=== PATIENT | female | born 1955 | race Caucasian/White ===

== ENCOUNTER 2018-08-31 20:28 | Inpatient (IN) ==
[2018-08-31] MEDS ORDERED: ZOFRAN IV ONE (21:16)
[2018-08-31] MEDS ORDERED: NS 1,000 ML IV ONE (21:17)
[2018-08-31 21:27] LABS: URINE SOURCE CATH
[2018-08-31 21:37] LABS: BASO# 0.01 X1000 (0.0-0.2); BASO% 0.2 % (0.0-0.8); EOS# 0.04 X1000 (0.0-0.7); EOS% 0.6 % (0.0-10.0); HEMATOCRIT 36.6 % (37.0-47.0); HEMOGLOBIN 11.4 g/dL (12.0-16.0); IMM GRAN# 0.03 X1000 (0.0-0.04); IMM GRAN% 0.5 % (0.0-0.5); LYMPH# 0.94 X1000 (1.2-3.4); LYMPH% 14.8 % (20.5-51.1); MCH 28.9 PG (27-31); MCHC 31.1 g/dL (33-37); MCV 92.9 FL (81-99); MONO# 0.97 X1000 (0.11-0.59); MONO% 15.2 % (1.7-9.3); MPV 11.4 FL (7.4-10.4); NEUT# 4.38 X1000 (1.4-6.5); NEUT% 68.7 % (42.2-75.2); PLT 122 X1000 (130-400); RBC 3.94 XMIL (4.2-5.4); RDW 15.5 % (11.5-14.5); WBC 6.37 X1000 (4.8-10.8)
--- NOTE | 2018-08-31 21:39 | Diag Imaging Result Doc PS360 ---
CHEST-PORTABLE - 08/31/2018 INDICATION: altered mental status COMPARISON: 08/07/2018 FINDINGS: The lungs are normally expanded and clear. Heart size and mediastinal contours are normal. No pneumothorax or pleural effusion. IMPRESSION: Negative exam. Electronically signed by David Wick 08/31/2018 9:37 PM
[2018-08-31 21:41] LABS: BILIRUBIN URINE NEGATIVE (NEGATIVE); BLOOD URINE NEGATIVE (NEGATIVE); COLOR YELLOW; GLUCOSE URINE NEGATIVE (NEGATIVE); KETONE URINE TRACE mg/dL (NEGATIVE); LEUKOCYTES URINE SMALL (NEGATIVE); NITRITE URINE NEGATIVE (NEGATIVE); PROTEIN URINE 30 mg/dL (NEGATIVE); SP GRAVITY URINE 1.011; TURBIDITY URINE CLEAR (CLEAR); UR EPITHELIAL CELLS <10 /HPF (<10); URINE BACTERIA 1+ /HPF; URINE RBC <10 /HPF (<10); UROBILINOGEN URINE NORMAL (NORMAL)
--- NOTE | 2018-08-31 21:44 | Diag Imaging Result Doc PS360 ---
CT HEAD W/O CONTRAST - 08/31/2018 INDICATION: altered mental status COMPARISON: 11/16/2016 FINDINGS: Stable mild atrophy and periventricular white matter chronic microvascular disease. No intracranial mass or hemorrhage. The skull is intact. The sinuses are clear. IMPRESSION: No acute disease or change from prior. This exam was performed using automated exposure control, adjustment of mA or kV according to patient size, and/or use of iterative reconstruction technique Electronically signed by David Wick 08/31/2018 9:42 PM
[2018-08-31 21:50] LABS: UR AMPHETAMINES QUAL NONE DETECTED (NONE DETECT); UR BARBITUATES QUAL NONE DETECTED (NONE DETECT); UR BENZODIAZEPIN QUAL NONE DETECTED (NONE DETECT); UR CANNABINOIDS QUAL NONE DETECTED (NONE DETECT); UR COCAINE QUAL NONE DETECTED (NONE DETECT); UR METHADONE QUAL NONE DETECTED (NONE DETECT); UR OPIATES QUAL NONE DETECTED (NONE DETECT); UR OXYCODONE QUAL NONE DETECTED (NONE DETECT); UR PCP QUAL NONE DETECTED (NONE DETECT)
[2018-08-31 21:57] LABS: AGAP 14; ALB/GLOB RATIO 1.1; ALBUMIN 3.8 g/dL (3.5-5.0); ALKALINE PHOSPHATASE 59 U/L (32-104); BUN 16 mg/dL (8-22); CALCIUM 9.8 mg/dL (8.8-10.2); CHLORIDE 100 mmol/L (98-107); CK PROFILE 53 U/L (24-173); COSMO 281; CREATININE 1.3 mg/dL (0.5-0.9); ESTIMATED GFR 42; GLUCOSE 102 mg/dL (70-104); GOT 12 U/L (10-30); GPT < 5 U/L (10-36); SODIUM 140 mmol/L (136-145); TCO2 26 mmol/L (25-35); TOTAL BILIRUBIN 0.29 mg/dL (0.20-1.00); TOTAL PROTEIN 7.3 g/dL (6.3-8.3)
[2018-08-31 22:15] LABS: INR 0.91; PROTIME 12.9 Seconds (11.0-16.0)
[2018-08-31 22:16] LABS: PTT 32.4 Seconds (22.3-41.8)
[2018-08-31] MEDS ORDERED: ROCEPHIN 1 GM in NS 50 ML IV ONE (23:24)
--- NOTE | 2018-08-31 23:24 | PROVIDER DOCUMENTATION ---
This chart was entered by Rani Ritter Scribe, acting as scribe for Diego Trevino MD. HPI-General Adult - General Chief Complaint: General Adult Stated Complaint: UTI Time Seen by Provider: 08/31/18 20:39 Source: patient Unable to obtain history due to:: altered (mild confusion) Allergies/Adverse Reactions: Patient Allergies Allergy/AdvReac Type Severity Reaction Status Date / Time No Known Allergies Allergy Verified 07/11/17 23:47 Home Medications: Home Medication List Medication Instructions Recorded Confirmed Last Taken Type Linagliptin [Tradjenta] 5 mg PO QHS 04/28/15 08/07/18 2 Days Ago History ~08/05/18 Metformin HCl 500 mg PO BID 04/28/15 08/07/18 2 Days Ago History ~08/05/18 Dicyclomine [Bentyl] 20 mg PO TID AC 07/12/17 08/07/18 2 Days Ago History ~08/05/18 Donepezil [Aricept] 5 mg PO QHS 07/12/17 08/07/18 2 Days Ago History ~08/05/18 Pantoprazole [Protonix] 40 mg PO DAILY@0700 07/12/17 08/07/18 2 Days Ago History ~08/05/18 Pramipexole [Mirapex] 0.5 mg PO DAILY 07/12/17 08/07/18 2 Days Ago History ~08/05/18 Bupropion HCl [Bupropion HCl Sr] 200 mg PO BID 08/07/18 08/07/18 1 Day Ago History ~08/06/18 Carbidopa/Levodopa [Carbidopa-Levo 1 each PO BID 08/07/18 08/07/18 2 Days Ago History 25-100 Tab] ~08/05/18 Divalproex Sodium 500 mg PO DAILY 08/07/18 08/07/18 2 Days Ago History ~08/05/18 Ergocalciferol (Vitamin D2) 50,000 unit PO DIRECTED 08/07/18 08/07/18 2 Days Ago History [Vitamin D] ~08/05/18 Hydrocodone/Acetaminophen 1 each PO TID 08/07/18 08/07/18 2 Days Ago History [Hydrocodone-Acetamin 10-325 mg] ~08/05/18 Simvastatin 20 mg PO QHS 08/07/18 08/07/18 2 Days Ago History ~08/05/18 CephALEXIN [Keflex] 500 mg PO TID #20 cap 08/09/18 Unknown Rx Ciprofloxacin [Cipro] 500 mg PO BID #14 tab 08/09/18 Unknown Rx - History of Present Illness -Gen Adult Nature of Presenting Problems: pt is a 62 yr old female presenting with complaint of AMS, confusion, nausea and vomiting today, pt lethargic today. no fever, no other complaint. pt does have hx of hx of recurrent UTIs Location of Pain/Injury: reports: none Pain Radiation: reports: no radiation Quality of Pain: reports: none Severity: reports: moderate Onset/Duration: reports: this afternoon Timing: reports: still present, changing over time, getting worse Context/Activities at Onset: reports: light activity Modifying Factors: improves with: nothing Associated Symptoms: reports: fatigue, genitourinary problems, malaise, weakness , other (confusion). denies: fever/chills Similar Symptoms Previously?: Yes Recently seen or treated by another doctor?: Yes Review of Systems - Adult - REVIEW OF SYSTEMS - ADULT Constitutional: denies: chills, fever Eyes: reports: no symptoms reported Ears, Nose, Mouth & Throat: reports: no symptoms reported Cardiovascular: denies: chest pain, palpitations, syncope Respiratory: denies: cough, shortness of breath Gastrointestinal: reports: nausea, vomiting. denies: abdominal pain Genitourinary: reports: frequent UTI's. denies: dysuria, frequency, flank pain Musculoskeletal: reports: no symptoms reported Integumentary: reports: no symptoms reported Neurological: reports: other (confusion). denies: dizziness/vertigo, headache/ migraines Psychiatric: reports: no symptoms reported Endocrine: reports: no symptoms reported Hematologic/Lymphatic: reports: no symptoms reported Allergic/Immunologic: reports: no symptoms reported All Other Systems: Reviewed and Negative Past History - Adult - PAST MEDICAL HISTORY-ADULT Review of Records: reports: Old Records Reviewed, Nursing Assessment Review, Medications Reviewed, Social history reviewed & non-contributory. Major Childhood Illnesses: reports: denies history Cardiovascular: reports: HTN, hyperlipidemia Respiratory: reports: denies history Gastrointestinal: reports: GERD, IBS Obstetrical/Gynecological: reports: denies history Genitourinary: reports: other (previous kidney failure in 2000) Musculoskeletal: reports: denies history Neurological: reports: Parkinson's Psychiatric: reports: bipolar Endocrine/Immune: reports: denies history, Diabetes Other Conditions: reports: denies history - PRIOR SURGERIES/PROCEDURES Surgical/Procedure History: reports: recent surgery (Shoulder Surgery last week 04/2015), hysterectomy, BTL, orthopedic (extremity) (L Shoulder Sx, 2014), back/ neck (bulging disc, L4-5) - IMMUNIZATION STATUS Childhood Immunizations: See Nurse Assessment Flu Vaccine: See Nurse Assessment - FAMILY HISTORY Family History: reviewed, not pertinent - SOCIAL HISTORY Smoking: denies Substance Use: denies Living Situation: family Physical Exam-General - PHYSICAL EXAM-ADULT Initial Vital Signs Reviewed: Yes - CONSTITUTIONAL General Appearance: alert, other (frail, confused) - EYES Eyes: PERRL/EOMI - HEAD, EARS, NOSE, MOUTH & THROAT HENMT: normocephalic/atraumatic, moist mucous membranes - NECK Neck: non-tender, full range of motion, supple, normal inspection - RESPIRATORY Respiratory: chest non-tender, lungs clear, normal breath sounds - CARDIOVASCULAR Cardiovascular: normal peripheral pulses, regular rate, rhythm, no edema - GASTROINTESTINAL (ABDOMEN) Abdominal Exam: normal bowel sounds, non tender, soft - LYMPHATIC Lymphatic: no adenopathy - MUSCULOSKELETAL Back Exam: normal inspection, no CVA tenderness, no vertebral tenderness Extremity: normal range of motion, non-tender, normal inspection - SKIN Integumentary: normal color, normal turgor, warm/dry - NEUROLOGIC Neurologic: grossly normal, no motor/sensory deficits - PSYCHIATRIC Psych/Mental Status: other (oriented tp person/place) Progress - PLAN OF CARE/RESULTS Progress/Plan/Lab Results: Vital Signs - 8 hr 08/31/18 20:32 Temperature 98.9 F Pulse Rate 86 Respiratory Rate 20 Blood Pressure 145/61 O2 Sat by Pulse Oximetry 100 Laboratory Results - last 24 hr 08/31/18 08/31/18 08/31/18 20:41 21:08 21:08 WBC 6.37 RBC 3.94 L Hgb 11.4 L Hct 36.6 L MCV 92.9 MCH 28.9 MCHC 31.1 L RDW Std Deviation 15.5 H Plt Count 122 L MPV 11.4 H Immature Gran % (Auto) 0.5 Neut % (Auto) 68.7 Lymph % (Auto) 14.8 L Hick[place] % (Auto) 15.2 H Eos % (Auto) 0.6 Baso % (Auto) 0.2 Immature Gran # (Auto) 0.03 Neut # (Auto) 4.38 Lymph # (Auto) 0.94 L [place] # (Auto) 0.97 H Eos # (Auto) 0.04 Baso # (Auto) 0.01 POC Glucose 93 D Plasma Lactate 2.2 Urine Source Urine Color Urine Turbidity Urine pH Ur Specific [place] Urine Protein Ur Glucose (Stick) Ur Ketones (Stick) Urine Blood Urine Nitrite Urine Bilirubin Urobilinogen Dipstick Urine Leukocytes Urine WBC (Auto) Urine RBC (Auto) U Epithel Cells (Auto) Urine Bacteria (Auto) 08/31/18 21:10 WBC RBC Hgb Hct MCV MCH MCHC RDW Std Deviation Plt Count MPV Immature Gran % (Auto) Neut % (Auto) Lymph % (Auto) [place] % (Auto) Eos % (Auto) Baso % (Auto) Immature Gran # (Auto) Neut # (Auto) Lymph # (Auto) [place] # (Auto) Eos # (Auto) Baso # (Auto) POC Glucose Plasma Lactate Urine Source CATH Urine Color YELLOW Urine Turbidity CLEAR Urine pH 7.0 Ur Specific [place] 1.011 Urine Protein 30 A Ur Glucose (Stick) NEGATIVE Ur Ketones (Stick) TRACE A Urine Blood NEGATIVE Urine Nitrite NEGATIVE Urine Bilirubin NEGATIVE Urobilinogen Dipstick NORMAL Urine Leukocytes SMALL A Urine WBC (Auto) 10-20 A Urine RBC (Auto) <10 U Epithel Cells (Auto) <10 Urine Bacteria (Auto) 1+ Orders Category Date Time Status CHEST-PORTABLE [RAD] Stat Exams 08/31/18 21:[address] HEAD W/O CONTRAST [CT] Stat Exams 08/31/18 21:16 Completed AMMONIA [CHEM] Stat Lab 08/31/18 21:08 Received CBC WITH ELECTRONIC DIFF [HEME] Stat Lab 08/31/18 21:08 Completed CK PROFILE [SP CHEM] Stat Lab 08/31/18 21:08 Received COMPREHENSIVE METABOLIC PANEL [CHEM] Stat Lab 08/31/18 21:08 Received LACTATE, PLASMA [CHEM] Stat Lab 08/31/18 21:08 Completed PRO B-NATRIURETIC PEPTIDE Stat Lab 08/31/18 21:08 Received PROTIME WITH INR [COAG] Stat Lab 08/31/18 21:33 Ordered PTT [COAG] Stat Lab 08/31/18 21:33 Ordered URINALYSIS W/POSS RFLX CULT [URINALYSIS] Stat Lab 08/31/18 21:10 Completed URINE CULTURE [RM] Routine Lab 08/31/18 21:42 Received URINE DRUG SCREEN Stat Lab 08/31/18 21:10 Received 0.9% Sodium Chloride Inj [Ns] 1,000 ml Med 08/31/18 21:17 Active IV 999 mls/hr Ondansetron [Zofran] Med 08/31/18 21:16 Discontinued 4 mg IV NOW ONE EKG [EKG] Stat Ther 08/31/18 21:14 Ordered Result Diagrams: 08/31/18 21:08 08/31/18 21:08 - XRAY 1 XRAY Study: Chest Impression: Normal ( Signed CHEST-PORTABLE - 08/31/2018 INDICATION: altered mental status COMPARISON: 08/07/2018 FINDINGS: The lungs are normally expanded and clear. Heart size and mediastinal contours are normal. No pneumothorax or pleural effusion. IMPRESSION: Negative exam. Electronically signed by David Wick 08/31/2018 9:37 PM [id number]/31/[id number] Interpreting Physician: David Wick MD Dictated Date/Time: 08/31/182132 cc: Diego Trevino MD; Saeed Kearns MD) Comparison with other Films: no changes (08/07/18) - CT/MRI 1 CT Study: Head Impression: Abnormal (Signed CT HEAD W/O CONTRAST - 08/31/2018 INDICATION: altered mental status COMPARISON: 11/16/2016 FINDINGS: Stable mild atrophy and periventricular white matter chronic microvascular disease. No intracranial mass or hemorrhage. The skull is intact. The sinuses are clear. IMPRESSION: No acute disease or change from prior. This exam was performed using automated exposure control, adjustment of mA or kV according to patient size, and/or use of iterative reconstruction technique Electronically signed by David Wick 08/31/2018 9:42 PM [id number]/31/[id number] Interpreting Physician: David Wick MD Dictated Date/Time: 08/31/182138 cc: Diego Trevino MD; Saeed Kearns MD) Comparison with other Films: no changes (11/16/16) - CONSULTS/PCP/HOSPITALIST Notification #1 *Consult/PCP/Hospitalist*: Dr. El Time Discussed: 23:23 Consult Disposition: Admit Departure - Departure Date of Disposition Decision: 08/31/18 Time of Disposition Decision: 23:24 DIAGNOSIS: Altered mental status Qualifiers: Altered mental status type: disorientation Qualified Code(s): R41.0 - Disorientation, unspecified UTI (urinary tract infection) Qualifiers: Urinary tract infection type: site unspecified Hematuria presence: without hematuria Qualified Code(s): N39.0 - Urinary tract infection, site not specified Disposition: HOME 01 Certified Medical Emergency: Emergent Condition: Fair - Critical Care Note This patient required my direct & personal management of CC.: No Attestation - Physician/ MATY Attestation The physician spent face to face time with patient:: Yes Advanced Practice Provider documentation review:: Supervising physician onsite and consulted in the evaluation and care of this patient. The physician did have a face to face encounter with the patient. This chart was documented by the indicated scribe, (Rani Ritter Scribe) and accurately reflects the services I performed and decisions made by me, Diego Trevino MD, as attested by the provider's signature.
--- NOTE | 2018-09-01 07:12 | HISTORY AND PHYSICAL ---
PRIMARY CARE PHYSICIAN: Unknown. CHIEF COMPLAINT: Mental status changes, confusion. HISTORY OF PRESENTING ILLNESS: A 62-year-old female with a history of Parkinson ', dementia, hypertension, diabetes mellitus type 2, was brought to the emergency department due to patient being more confused than her baseline. As per family members, she was altered and was not really responsive to questions the family was asking. Was brought to the emergency department. She was still somewhat confused and due to her presenting symptoms it was thought that we will place her for observation for further evaluation and management. At time my examination, she had denied any headache, fever, chills, chest pain, shortness of breath or any weight changes. States that she feels okay. PAST MEDICAL HISTORY: Parkinson's dementia, hypertension, diabetes mellitus type 2, bipolar disorder. PAST SURGICAL HISTORY: None. ALLERGIES: No known drug allergies. CURRENT MEDICATIONS: As listed in the medication reconciliation sheet. SOCIAL HISTORY: No history of smoking, alcohol or illicit drug use. FAMILY HISTORY: No history of coronary disease. REVIEW OF SYSTEMS: Fourteen-point review of systems as listed in HPI. Other systems negative. PHYSICAL EXAMINATION: GENERAL: Cooperative, friendly female. She is resting comfortably. VITAL SIGNS: Temperature 98.9 degrees, pulse 86, respiration 20, blood pressure 145/61. HEENT: Atraumatic, normocephalic. Extraocular movements intact. PERRLA. NECK: Supple. CHEST: Clear to auscultation. ABDOMEN: Soft, positive bowel sounds. EXTREMITIES: No edema. NEUROLOGIC: She is awake, alert, oriented x2. GENITOURINARY: No bladder distention. SKIN: Warm. LABORATORIES AND STUDIES: WBC 6.37, hemoglobin 11.4, hematocrit 36.6, platelets 122. Sodium 140, potassium 5.0, chloride 100, CO2 BUN 16, creatinine is 1.3, glucose is 102. UA shows some small leukocytes. Head CT negative. Chest x-ray negative. ASSESSMENT: A 62-year-old female with a history of Parkinson's dementia, hypertension, diabetes mellitus type 2. Had presented to the emergency department with a 1-day history of having mental status changes. As per family, they state that this is worse than baseline. Due to her presenting symptoms, we will place patient for observation and further evaluation and management. 1. Altered mental status worse than baseline. 2. Parkinson's. 3. Dementia. 4. Diabetes mellitus type 2. 5. Hypertension. PLAN: 1. We will admit patient to medical floor with telemetry. 2. Continue with neuro checks. 3. Restart her home medications. 4. Continue gentle hydration. 5. Monitor blood glucose and put patient on sliding scale insulin regimen. 6. We will monitor blood pressure, resume antihypertensive agent. 7. Put Patient on DVT prophylaxis with SCDs. 8. We will continue to follow, and reassess and make further recommendations based on patient's clinical course. cc: MD Evert Hood MD MTDD
[2018-09-01] MEDS: HUMULIN R SUBQ SCH ×4 (07:37→20:01)
[2018-09-01] MEDS: NS 1,000 ML IV SCH ×2 (07:42→18:45)
[2018-09-01] MEDS: PRILOSEC PO SCH (07:43)
--- NOTE | 2018-09-01 08:14 | EKG Report ---
Test Performed on : 08/31/2018 9:54:11 PM Test Reason : altered mental status Blood Pressure : / mmHG Vent. Rate : 080 BPM Atrial Rate : 080 BPM P-R Int : 164 ms QRS Dur : 090 ms QT Int : 358 ms P-R-T Axes : 045 -07 059 degrees QTc Int : 412 ms Normal sinus rhythm. Nonspecific ST and T wave abnormality Abnormal ECG When compared with ECG of 20-FEB-2013 17:07, No significant change was found Unconfirmed Result
[2018-09-01] MEDS: SINEMET 25/100 PO SCH ×2 (08:36→20:00)
[2018-09-01] MEDS ORDERED: TYLENOL PO PRN (16:47)
[2018-09-01] MEDS: TYLENOL PO PRN (17:35)
[2018-09-01] MEDS ORDERED: VITAMIN D PO SCH (18:45)
[2018-09-01] MEDS: ZOSYN 3.375 GM in NS 50 ML IV SCH (18:54)
[2018-09-01] MEDS: ARICEPT PO SCH (20:00)
[2018-09-01] MEDS: ZOCOR PO SCH (20:00)
[2018-09-01] MEDS: TRADJENTA PO SCH (20:00)
[2018-09-02] MEDS: ZOSYN 3.375 GM in NS 50 ML IV SCH ×6 (01:29→21:27)
[2018-09-02 06:00] LABS: BASO# 0.01 X1000 (0.0-0.2); BASO% 0.2 % (0.0-0.8); EOS# 0.03 X1000 (0.0-0.7); EOS% 0.6 % (0.0-10.0); HEMATOCRIT 32.3 % (37.0-47.0); LYMPH# 1.08 X1000 (1.2-3.4); LYMPH% 23.1 % (20.5-51.1); MCH 28.5 PG (27-31); MONO# 0.71 X1000 (0.11-0.59); MONO% 15.2 % (1.7-9.3); MPV 10.8 FL (7.4-10.4); NEUT# 2.85 X1000 (1.4-6.5); NEUT% 60.9 % (42.2-75.2); PLT 113 X1000 (130-400); RBC 3.51 XMIL (4.2-5.4); RDW 15.4 % (11.5-14.5); WBC 4.68 X1000 (4.8-10.8)
[2018-09-02] MEDS: PRILOSEC PO SCH (06:02)
[2018-09-02] MEDS: NS 1,000 ML IV SCH (06:03)
[2018-09-02] MEDS: HUMULIN R SUBQ SCH ×4 (06:15→21:25)
[2018-09-02 06:16] LABS: CALCIUM 8.7 mg/dL (8.8-10.2); CREATININE 1.4 mg/dL (0.5-0.9); POTASSIUM 4.9 mmol/L (3.5-5.1)
[2018-09-02] MEDS: GLUCOPHAGE PO SCH ×2 (08:17→17:21)
[2018-09-02] MEDS: SINEMET 25/100 PO SCH ×2 (08:17→21:25)
[2018-09-02] MEDS: TYLENOL PO PRN (16:51)
--- NOTE | 2018-09-02 20:09 | PROGRESS NOTE ---
DATE: 09/02/2018 SUBJECTIVE: A 62-year-old white female admitted to the hospital with altered mental status, dehydration, UTI. PAST MEDICAL HISTORY: Reviewed. PAST SURGICAL HISTORY: Reviewed. MEDICINES: Reviewed. ALLERGIES: Not known. OBJECTIVE: Vital Signs: Temperature is 98. Vitals are stable. 96% on room air. HEENT: Within normal limits. Neck: Supple. Chest: Clear. Heart: Sounds are regular. Abdomen: Belly is soft, nontender. Good bowel sounds. No signs of peritonitis. Neurologic: No deficits noted. INVESTIGATIONS: CBC: White cell count 4.6, hematocrit 32, platelets 113,000. SMA-7: Creatinine 1.4. Urinalysis positive for UTI due to E coli sensitive to Levaquin. ASSESSMENT AND PLAN: 1. Altered mental status due to metabolic encephalopathy with underlying delirium, bipolar disorder and dementia. 2. Dementia, on Aricept. 3.Type 2 diabetes. On Tradjenta. 4. Hyperlipidemia. On Zocor. 5. Urinary tract infection. On IV Zosyn. 6. Azotemia. IV fluids. 7. Type 2 diabetes. On metformin, insulin sliding scale with protocol. 8. DVT prophylaxis. As per order sheet. 9. Vitamin D deficiency, on replacement. 10. We will follow up. cc: Evert Kearns MD MTDD
[2018-09-02] MEDS: TRADJENTA PO SCH (21:25)
[2018-09-02] MEDS: ARICEPT PO SCH (21:25)
[2018-09-02] MEDS: ZOCOR PO SCH (21:25)
[2018-09-02] MEDS: LOVENOX SUBQ SCH (21:31)
[2018-09-03] MEDS: ZOSYN 3.375 GM in NS 50 ML IV SCH ×4 (02:13→17:49)
[2018-09-03] MEDS: PRILOSEC PO SCH (06:06)
[2018-09-03] MEDS: TYLENOL PO PRN ×2 (06:11→13:08)
[2018-09-03] MEDS: HUMULIN R SUBQ SCH ×4 (06:12→21:45)
[2018-09-03 06:43] LABS: CALCIUM 8.3 mg/dL (8.8-10.2); CREATININE 1.2 mg/dL (0.5-0.9); POTASSIUM 4.9 mmol/L (3.5-5.1)
[2018-09-03] MEDS: GLUCOPHAGE PO SCH ×2 (08:01→17:37)
[2018-09-03] MEDS: SINEMET 25/100 PO SCH ×2 (08:01→21:44)
[2018-09-03] MEDS: NS 1,000 ML IV SCH ×2 (11:02→13:08)
[2018-09-03] MEDS: ARICEPT PO SCH (21:43)
[2018-09-03] MEDS: TRADJENTA PO SCH (21:43)
[2018-09-03] MEDS: ZOCOR PO SCH (21:43)
[2018-09-03] MEDS: LOVENOX SUBQ SCH (21:44)
[2018-09-04] MEDS: ZOSYN 3.375 GM in NS 50 ML IV SCH ×4 (00:55→18:55)
[2018-09-04] MEDS: PRILOSEC PO SCH ×2 (05:57→06:33)
--- NOTE | 2018-09-04 06:47 | PROGRESS NOTE ---
DATE: 09/03/2018 SUBJECTIVE: The patient is a little better. Confusion is improving. REVIEW OF SYSTEMS: None reported. OBJECTIVE: On exam, temperature is 98, pulse is 70, blood pressure is 122/56. HEENT exam is within normal limits. Neck is supple. No lymphadenopathy. Chest is clear to auscultation. Heart sounds regular. Abdomen: Belly is soft, nontender. No neurological deficits. SMA-7: Sodium 140, potassium 4.9, chloride 106. BUN 17, creatinine 1.2, glucose 146, calcium 8.3. Urine cultures positive for Escherichia coli. ASSESSMENT AND PLAN: 1. Altered mental status; getting better. 2. Dehydration; IV fluids. 3. Recurrent urinary tract infection; on IV Zosyn. 4. Continue present medical therapy. 5. Deep venous thrombosis and gastrointestinal prophylaxis as per order sheet. Level of documentation: 15 minutes. cc: Evert Kearns MD MTDD
[2018-09-04] MEDS: HUMULIN R SUBQ SCH ×4 (06:48→20:20)
[2018-09-04] MEDS: GLUCOPHAGE PO SCH ×2 (08:46→17:48)
[2018-09-04] MEDS: SINEMET 25/100 PO SCH ×2 (08:46→20:19)
[2018-09-04] MEDS: CULTURELLE PO SCH (08:49)
[2018-09-04] MEDS: NS 1,000 ML IV SCH (13:27)
[2018-09-04] MEDS: FLAGYL PO SCH ×2 (14:47→20:19)
[2018-09-04] MEDS: TRADJENTA PO SCH (20:19)
[2018-09-04] MEDS: LOMOTIL PO PRN ×2 (20:19→22:18)
[2018-09-04] MEDS: ZOCOR PO SCH (20:19)
[2018-09-04] MEDS: ARICEPT PO SCH (20:19)
[2018-09-04] MEDS: LOVENOX SUBQ SCH (20:20)
[2018-09-05] MEDS: TYLENOL PO PRN (03:22)
[2018-09-05] MEDS: ZOSYN 3.375 GM in NS 50 ML IV SCH ×5 (03:22→23:56)
[2018-09-05] MEDS: LOMOTIL PO PRN ×2 (03:22→18:22)
--- NOTE | 2018-09-05 05:00 | PROGRESS NOTE ---
DATE: 09/04/2018 SUBJECTIVE: The patient is a little better. Complains of diarrhea and the confusion is improving. OBJECTIVE: Vital signs: Temperature is 97.5, pulse is 67, blood pressure is 131/56. HEENT: Within normal limits. Neck: Supple. Chest: Clear. Heart: Sounds are regular. Abdomen: Belly is soft, nontender. Good bowel sounds. Neurologic: No neurological deficits. INVESTIGATIONS: SMA-7, creatinine 1.2. ASSESSMENT AND PLAN: 1. Diarrhea, rule out pseudomembranous colitis. Plan is stool cultures and we will start her on Flagyl. 2. Continue intravenous fluids. 3. Urinary tract infection on intravenous Zosyn. 4. Type 2 diabetes, stable on present Tradjenta and metformin. Check the labs in the morning, and follow up on the stool studies. We will consider probiotics. LEVEL OF DOCUMENTATION: 25 minutes. cc: Evert Kearns MD
[2018-09-05] MEDS: PRILOSEC PO SCH (06:26)
[2018-09-05] MEDS: FLAGYL PO SCH ×3 (06:26→21:11)
[2018-09-05 06:39] LABS: BASO# 0.03 X1000 (0.0-0.2); BASO% 0.8 % (0.0-0.8); EOS# 0.14 X1000 (0.0-0.7); EOS% 3.6 % (0.0-10.0); HEMATOCRIT 31.7 % (37.0-47.0); HEMOGLOBIN 9.8 g/dL (12.0-16.0); LYMPH# 1.48 X1000 (1.2-3.4); LYMPH% 37.7 % (20.5-51.1); MCH 28.3 PG (27-31); MCHC 30.9 g/dL (33-37); MCV 91.6 FL (81-99); MONO# 0.54 X1000 (0.11-0.59); MONO% 13.7 % (1.7-9.3); MPV 10.1 FL (7.4-10.4); NEUT# 1.74 X1000 (1.4-6.5); NEUT% 44.2 % (42.2-75.2); PLT 168 X1000 (130-400); RBC 3.46 XMIL (4.2-5.4); RDW 14.9 % (11.5-14.5); WBC 3.93 X1000 (4.8-10.8)
[2018-09-05] MEDS: HUMULIN R SUBQ SCH ×4 (07:08→21:12)
[2018-09-05 07:16] LABS: CALCIUM 9.3 mg/dL (8.8-10.2); CREATININE 1.6 mg/dL (0.5-0.9); POTASSIUM 4.3 mmol/L (3.5-5.1)
[2018-09-05] MEDS: CULTURELLE PO SCH (08:15)
[2018-09-05] MEDS: SINEMET 25/100 PO SCH ×2 (08:15→21:11)
[2018-09-05] MEDS: GLUCOPHAGE PO SCH ×2 (08:15→16:33)
[2018-09-05] MEDS: ZOFRAN IV PRN (08:15)
[2018-09-05] MEDS: NS 1,000 ML IV SCH (14:41)
[2018-09-05] MEDS: LOVENOX SUBQ SCH (21:11)
[2018-09-05] MEDS: TRADJENTA PO SCH (21:11)
[2018-09-05] MEDS: ZOCOR PO SCH (21:11)
[2018-09-05] MEDS: ARICEPT PO SCH (21:11)
--- NOTE | 2018-09-05 23:58 | PROGRESS NOTE ---
DATE: 09/05/2018 SUBJECTIVE: The patient's diarrhea is improving. EXAMINATION: Vital Signs: Temperature is 99 degrees. Vitals are stable. HEENT: Within normal limits. Neck: Supple. Chest: Clear. Heart: Sounds are regular. Abdomen: Belly is soft, tender. No signs of peritonitis. INVESTIGATIONS: White cell count 3.9, hematocrit 31, platelets 168,000. BUN 23, creatinine 1.6. Stool cultures negative for C. difficile. ASSESSMENT AND PLAN: 1. Azotemia. Continue IV fluids. 2. Diarrhea. C. difficile was ruled out. On Flagyl. 3. Urinary tract infection with E. coli. 4. Diabetes. Stable. Patient is anxious to go home. We will wait until the creatinine comes back to normal and diarrhea controls. Continue present medical therapy. LEVEL OF DOCUMENTATION: 25 minutes. cc: Evert Kearns MD
[2018-09-06] MEDS: NS 1,000 ML IV SCH ×3 (01:20→11:31)
[2018-09-06] MEDS: LOMOTIL PO PRN ×3 (02:06→21:58)
[2018-09-06] MEDS: TYLENOL PO PRN (02:06)
[2018-09-06] MEDS: FLAGYL PO SCH ×3 (05:23→21:58)
[2018-09-06] MEDS: PRILOSEC PO SCH ×2 (05:24→08:02)
[2018-09-06 06:03] LABS: BASO# 0.03 X1000 (0.0-0.2); BASO% 0.6 % (0.0-0.8); EOS# 0.23 X1000 (0.0-0.7); EOS% 4.6 % (0.0-10.0); HEMATOCRIT 33.2 % (37.0-47.0); HEMOGLOBIN 10.4 g/dL (12.0-16.0); MCH 28.3 PG (27-31); MCHC 31.3 g/dL (33-37); MCV 90.5 FL (81-99); MONO# 0.49 X1000 (0.11-0.59); MONO% 9.8 % (1.7-9.3); MPV 10.3 FL (7.4-10.4); NEUT# 2.45 X1000 (1.4-6.5); PLT 204 X1000 (130-400); RBC 3.67 XMIL (4.2-5.4); RDW 14.8 % (11.5-14.5)
[2018-09-06 06:40] LABS: CALCIUM 9.3 mg/dL (8.8-10.2); CREATININE 1.5 mg/dL (0.5-0.9); POTASSIUM 4.3 mmol/L (3.5-5.1)
[2018-09-06] MEDS: ZOSYN 3.375 GM in NS 50 ML IV SCH ×3 (07:07→17:43)
[2018-09-06] MEDS: HUMULIN R SUBQ SCH ×4 (08:03→21:39)
[2018-09-06] MEDS: CULTURELLE PO SCH (08:15)
[2018-09-06] MEDS: SINEMET 25/100 PO SCH ×2 (08:15→21:58)
[2018-09-06] MEDS: GLUCOPHAGE PO SCH ×2 (08:15→17:37)
[2018-09-06] MEDS: ZOFRAN IV PRN ×2 (09:12→17:43)
--- NOTE | 2018-09-06 14:33 | PROGRESS NOTE ---
DATE: 09/06/2018 SUBJECTIVE: The patient still has two diarrhea stools. Creatinine is still running high. No other complaints. OBJECTIVE: Vital signs: Temperature is 98, pulse is 69, blood pressure is stable. HEENT: Within normal limits. NECK: Supple without lymphadenopathy. CHEST: Clear to auscultation. HEART: Heart sounds are regular. ABDOMEN: Soft and nontender. Obese. INVESTIGATIONS: CBC--white cell count 5, hematocrit 33, platelets 204. SMA-7--sodium 140, potassium 4.3, chloride 105, BUN 22, creatinine 1.5, glucose 146. Urine culture--e-coli. ASSESSMENT AND PLAN: 1. Urinary tract infection on IV Zosyn. 2. Diarrhea, nonspecific, rule out C-diff colitis. On Flagyl. 3. Dehydration. Continue on IV fluids and check BMP in the morning. 4. If she is stable, we will discharge in the morning. DOCUMENTATION TIME: 15 minutes. cc: Evert Kearns MD
[2018-09-06] MEDS: ARICEPT PO SCH (21:58)
[2018-09-06] MEDS: TRADJENTA PO SCH (21:58)
[2018-09-06] MEDS: LOVENOX SUBQ SCH (21:59)
[2018-09-06] MEDS: ZOCOR PO SCH (22:00)
[2018-09-07] MEDS: ZOSYN 3.375 GM in NS 50 ML IV SCH ×3 (00:21→11:50)
[2018-09-07] MEDS: TYLENOL PO PRN (00:21)
[2018-09-07] MEDS: ZOFRAN IV PRN (00:40)
[2018-09-07] MEDS: NS 1,000 ML IV SCH ×2 (04:45→14:27)
[2018-09-07] MEDS: PRILOSEC PO SCH ×2 (05:40→07:28)
[2018-09-07] MEDS: FLAGYL PO SCH ×3 (05:40→14:28)
[2018-09-07] MEDS: HUMULIN R SUBQ SCH ×2 (06:31→10:52)
[2018-09-07 07:53] LABS: AGAP 20; BUN 23 mg/dL (8-22); CALCIUM 9.3 mg/dL (8.8-10.2); CHLORIDE 107 mmol/L (98-107); COSMO 281; CREATININE 1.7 mg/dL (0.5-0.9); GLUCOSE 56 mg/dL (70-104); POTASSIUM 4.8 mmol/L (3.5-5.1); SODIUM 140 mmol/L (136-145); TCO2 13 mmol/L (25-35)
[2018-09-07] MEDS ORDERED: FLAGYL ONE (08:53)
[2018-09-07] MEDS: CULTURELLE PO SCH (09:03)
[2018-09-07] MEDS: GLUCOPHAGE PO SCH (09:03)
[2018-09-07] MEDS: SINEMET 25/100 PO SCH (09:03)
[2018-09-07 13:13] VITALS: BP 128/100
--- NOTE | 2018-09-09 06:20 | DISCHARGE SUMMARY ---
ADMISSION DATE: 09/02/2018 DISCHARGE DATE: 09/07/2018 DISCHARGING DIAGNOSES: 1. Altered mental status due to metabolic encephalopathy. 2. Urinary tract infection due to ESBL. Negative E. Coli. 3. Allergic rhinitis due to pollen. 4. Bipolar disorder. 5. Lewy body dementia. 6. Type 2 diabetes. 7. Acid reflux disease. 8. Homocystinemia. 9. Hyperlipidemia. 10. Hypertension. 11. Chronic back pain. 12. Sleep apnea. 13. History of DVT in the legs off of Coumadin. 14. B12 deficiency. 15. Vitamin D deficiency. BRIEF HISTORY: Please see the H and P that was done by hospitalist. In brief, she is a 62-year- old white female currently admitted to the hospital several times for UTI and confusion with underlying dementia and bipolar disorder. HOSPITAL COURSE: She is also azotemic. She was given IV fluids and IV Zosyn, and ancillary support was given DVT and GI prophylaxis respectively. The patient got better. The creatinine is still high. LABORATORIES: At the time of discharge CBC with white cell count 5, hematocrit 33 and platelets 204,000. SMA 7 sodium 140, potassium 4.8, chloride 107, BUN 23, creatinine 1.7 and glucose of 134. Urine cultures E. Coli. The patient also developed diarrhea and subsequently ruled out for C difficile. The patient has less bowel movements. DISCHARGE INSTRUCTIONS: 1. Pneumococcal vaccine 11/08/2017. 2. Tradjenta 5 mg daily. 3. Hold metformin until the creatinine comes back below 1.5. 4. Aricept 5 mg daily. 5. Protonix 40 daily. 6. Carbidopa/levodopa 25/100 1 tab p.o. b.i.d. 7. Simvastatin 20 daily. 8. Vitamin D 65503 units once a week. 9. Bupropion 200 mg p.o. b.i.d. 10. Macrobid 100 daily. 11. Culturelle 1 tablet daily. 12. Imodium as needed for diarrhea. FOLLOW UP: Follow up in my office for checking the CBC and SMA 7. Also needs a Urogynecology evaluation for recurrent UTIs. Continue vitamin B12 and vitamin D replacement therapy. cc: MD PUJA Andersen
== END 2018-09-07 15:02 | disposition home or self-care (01) | DRG 689 ==
LOC: ED 20:28 → INTOOBSV 09-01 02:57 → 4N 09-01 02:57 → SUATTDRO 09-01 02:57
PROVIDERS: ADMIT Internal Medicine; ATTEND Internal Medicine
CPT/HCPCS: 70450; 71010; 71045; 80048; 80053; 80101; 80301; 80307; 80324; 80345; 80346; 80353; 80358; 80361; 80365; 81001; 82140; 82270; 82550; 82948; 83605; 83880; 83992; 85025; 85610; 85730; 87045; 87046; 87077; 87088; 87186; 87205; 87324; 87449; 89055; 93005; 96361; 96365; 96375; 99285; A9270; G0431; G0434; G0479; G0480; J0696; J1650; J2405; J2543; J7030; XXXXX

== ENCOUNTER 2019-01-14 08:28 | Inpatient (IN) ==
--- NOTE | 2019-01-14 10:08 | EKG Report ---
Test Performed on : 01/14/2019 10:04:01 AM Test Reason : AMS Blood Pressure : / mmHG Vent. Rate : 084 BPM Atrial Rate : 084 BPM P-R Int : 170 ms QRS Dur : 090 ms QT Int : 340 ms P-R-T Axes : 045 -05 064 degrees QTc Int : 401 ms Normal sinus rhythm. Normal ECG When compared with ECG of 09-NOV-2018 23:30, (Unconfirmed) No significant change was found Unconfirmed Result
[2019-01-14 10:56] LABS: INR 0.94; PROTIME 13.3 Seconds (11.0-16.0)
[2019-01-14 10:58] LABS: ALB/GLOB RATIO 1.4; ALBUMIN 3.7 g/dL (3.5-5.0); CALCIUM 9.2 mg/dL (8.8-10.2); CREATININE 1.4 mg/dL (0.5-0.9); POTASSIUM 4.8 mmol/L (3.5-5.1); TOTAL BILIRUBIN 0.27 mg/dL (0.20-1.00); TOTAL PROTEIN 6.4 g/dL (6.3-8.3)
[2019-01-14 11:06] LABS: BASO# 0.01 X1000 (0.0-0.2); BASO% 0.2 % (0.0-0.8); EOS# 0.01 X1000 (0.0-0.7); EOS% 0.2 % (0.0-10.0); HEMATOCRIT 34.5 % (37.0-47.0); HEMOGLOBIN 11.1 g/dL (12.0-16.0); LYMPH# 0.25 X1000 (1.2-3.4); LYMPH% 4.3 % (20.5-51.1); MCHC 32.2 g/dL (33-37); MCV 93.2 FL (81-99); MONO# 0.79 X1000 (0.11-0.59); MONO% 13.6 % (1.7-9.3); MPV 9.9 FL (7.4-10.4); NEUT# 4.73 X1000 (1.4-6.5); NEUT% 81.7 % (42.2-75.2); PLT 98 X1000 (130-400); RDW 14.5 % (11.5-14.5); WBC 5.79 X1000 (4.8-10.8)
--- NOTE | 2019-01-14 11:09 | Diag Imaging Result Doc PS360 ---
EXAM: CHEST-1 VIEW HISTORY: ams TECHNIQUE: Chest single view COMPARISON: 11/09/2018 FINDINGS: For inspiratory effort. The heart is not enlarged. The vessels are not distended. There are no infiltrates. No effusion identified. IMPRESSION: Negative exam. Electronically signed by Albert Avalos 01/14/2019 11:07 AM
--- NOTE | 2019-01-14 11:13 | Diag Imaging Result Doc PS360 ---
EXAM: CT HEAD W/O CONTRAST HISTORY: ams TECHNIQUE: CT head without contrast COMPARISON: 11/09/2018 FINDINGS: No parenchymal hemorrhage. No epidural or subdural hematoma. No subarachnoid hemorrhage. Mild atrophy. No mass identified on this noncontrasted exam. No hydrocephalus. No sinus opacification. IMPRESSION: No hemorrhage. Mild atrophy. This exam was performed using automated exposure control, adjustment of mA or kV according to patient size, and/or use of iterative reconstruction technique. Electronically signed by Albert Avalos 01/14/2019 11:11 AM
[2019-01-14 11:50] LABS: URINE SOURCE CATH
[2019-01-14 12:00] LABS: BILIRUBIN URINE NEGATIVE (NEGATIVE); BLOOD URINE NEGATIVE (NEGATIVE); COLOR YELLOW; GLUCOSE URINE 150 mg/dL (NEGATIVE); KETONE URINE 10 mg/dL (NEGATIVE); LEUKOCYTES URINE SMALL (NEGATIVE); NITRITE URINE NEGATIVE (NEGATIVE); PH URINE 7.5; PROTEIN URINE NEGATIVE (NEGATIVE); SP GRAVITY URINE 1.007; TURBIDITY URINE CLEAR (CLEAR); UROBILINOGEN URINE NORMAL (NORMAL)
[2019-01-14 12:01] LABS: UR EPITHELIAL CELLS <10 /HPF (<10); URINE BACTERIA NEGATIVE /HPF; URINE RBC <10 /HPF (<10); URINE WBC <10 /HPF (<10)
[2019-01-14 12:18] LABS: UR AMPHETAMINES QUAL NONE DETECTED (NONE DETECT); UR BARBITUATES QUAL NONE DETECTED (NONE DETECT); UR BENZODIAZEPIN QUAL NONE DETECTED (NONE DETECT); UR CANNABINOIDS QUAL NONE DETECTED (NONE DETECT); UR COCAINE QUAL NONE DETECTED (NONE DETECT); UR METHADONE QUAL NONE DETECTED (NONE DETECT); UR OPIATES QUAL NONE DETECTED (NONE DETECT); UR OXYCODONE QUAL NONE DETECTED (NONE DETECT); UR PCP QUAL NONE DETECTED (NONE DETECT)
[2019-01-14] MEDS ORDERED: ROCEPHIN 1 GM in NS 50 ML IV ONE (12:59)
[2019-01-14] MEDS ORDERED: NS 1,000 ML IV ONE ×2 (12:59→15:28)
--- NOTE | 2019-01-14 15:24 | PROVIDER DOCUMENTATION ---
This chart was entered by Jasvir Villegas Scribe, acting as scribe for Rafael Leone MD. HPI-Psychological Disorder - General Chief Complaint: Altered Mental Status Stated Complaint: NAUSEA Time Seen by Provider: 01/14/19 09:55 Allergies/Adverse Reactions: Patient Allergies Allergy/AdvReac Type Severity Reaction Status Date / Time No Known Allergies Allergy Verified 01/14/19 09:47 Home Medications: Home Medication List Medication Instructions Recorded Confirmed Last Taken Type Linagliptin [Tradjenta] 5 mg PO QHS 04/28/15 01/14/19 08/31/18 History Donepezil [Aricept] 5 mg PO QHS 07/12/17 01/14/19 08/31/18 History Pantoprazole [Protonix] 40 mg PO DAILY@0700 07/12/17 01/14/19 08/31/18 History Bupropion HCl [Bupropion HCl Sr] 200 mg PO BID 08/07/18 01/14/19 1 Day Ago History ~08/06/18 Carbidopa/Levodopa [Carbidopa-Levo 1 each PO BID 08/07/18 01/14/19 08/31/18 History 25-100 Tab] Ergocalciferol (Vitamin D2) 50,000 unit PO DIRECTED 08/07/18 01/14/19 08/31/18 History [Vitamin D] Simvastatin 20 mg PO QHS 08/07/18 01/14/19 08/31/18 History Lactobacillus Rhamnosus GG 1 ea PO DAILY #90 cap 09/07/18 01/14/19 Unknown Rx [Culturelle] Bupropion HCl [Bupropion HCl ER] 200 mg PO DAILY 10/01/18 01/14/19 Unknown Hist ory Divalproex Sodium 500 mg PO DAILY 10/01/18 01/14/19 Unknown History - History of Present Illness-Psych Nature of Presenting Problem: Pt is a 63 yof who presents to the ED via EMS with a CC of of altered mental status. Pt's roommate states that the pt lives upstairs and last night the pt had difficulty getting up the stairs. Pt's roommate states that the pt had difficulty getting out of bed this morning and had difficulty speaking. Pt states that she is currently not in any pain. Pt reports a hx of HT and diabetes. Upon examination, the pt had no deficits and had difficulty speaking. Onset/Duration: reports: 1-3 hours ago Timing: reports: still present Severity: reports: mild Psychiatric Complaints: reports: confused. denies: paranoid, suicidal ideation Previous psych related hospitalizations?: No Patient arrived by:: EMS called by spouse/family Similar Symptoms Previously?: No Recently seen or treated by another doctor?: No Review of Systems - Adult - REVIEW OF SYSTEMS - ADULT ROS:: limited per condition Constitutional: reports: see HPI. denies: chills, fever, fatique, night sweats Eyes: reports: no symptoms reported Ears, Nose, Mouth & Throat: reports: no symptoms reported Cardiovascular: reports: no symptoms reported Respiratory: reports: no symptoms reported Gastrointestinal: reports: no symptoms reported Genitourinary: reports: no symptoms reported Musculoskeletal: reports: no symptoms reported Integumentary: reports: no symptoms reported Neurological: reports: see HPI, other (Difficulty speaking). denies: loss of balance, seizure, syncope Psychiatric: reports: no symptoms reported Endocrine: reports: no symptoms reported Hematologic/Lymphatic: reports: no symptoms reported Allergic/Immunologic: reports: no symptoms reported All Other Systems: Reviewed and Negative Past History - Adult - PAST MEDICAL HISTORY-ADULT Review of Records: reports: Old Records Reviewed, Nursing Assessment Review, Medications Reviewed, Social history reviewed & non-contributory. Major Childhood Illnesses: reports: denies history Cardiovascular: reports: HTN, hyperlipidemia Respiratory: reports: denies history Gastrointestinal: reports: GERD, IBS Obstetrical/Gynecological: reports: denies history Genitourinary: reports: other (previous kidney failure in 2000) Musculoskeletal: reports: denies history Neurological: reports: Parkinson's Psychiatric: reports: bipolar Endocrine/Immune: reports: denies history, Diabetes Other Conditions: reports: denies history - PRIOR SURGERIES/PROCEDURES Surgical/Procedure History: reports: recent surgery (Shoulder Surgery last week 04/2015), hysterectomy, BTL, orthopedic (extremity) (L Shoulder S, 2014), back/neck (bulging disc, L4-5) - IMMUNIZATION STATUS Childhood Immunizations: See Nurse Assessment Flu Vaccine: See Nurse Assessment - FAMILY HISTORY Family History: reviewed, not pertinent - SOCIAL HISTORY Smoking: non-smoker Substance Use: none/never Alcohol Use Frequency: never Living Situation: other (Roommate) Physical Exam-Psych Focus - Physical Exam-Psych Initial Vital Signs Reviewed: Yes Appearance: appropriate appearance, no apparent distress, alert, slow to respond . negative: anxious, combative, disheveled, mild distress Neurological: alert, normal mood/affect, calm. negative: anxious, depressed affect, flat Behavior/Eye Contact/Speech: cooperative, other (Difficulty speaking). negative: belligerent, compulsive, uncooperative Neck: non-tender, full range of motion. negative: limited range of motion, lymphadenopathy, meningismus Respiratory: chest non-tender, lungs clear, normal breath sounds, no pleuratic chest pain, no respiratory distress, no accessory muscle use. negative: respiratory distress, decreased breath sounds, accessory muscle use, crackles Cardiovascular: normal peripheral pulses, regular rate, rhythm, no edema, no gallop, no JVD, no murmur. negative: JVD, bradycardia, systolic murmur, extra beats Abdominal Exam: normal bowel sounds, non tender, soft. negative: guarding, rigid, rebound, tenderness Extremity: normal range of motion, non-tender. negative: deformity, erythema, inflammation Integumentary: normal color, normal turgor, warm/dry. negative: abrasion(s), erythema, jaundice, laceration(s) Progress - PLAN OF CARE/RESULTS Progress/Plan/Lab Results: Vital Signs - 8 hr 01/14/19 08:40 01/14/19 09:51 01/14/19 11:03 Temperature 97.6 F 98.2 F Pulse Rate 85 85 87 Respiratory Rate 16 13 18 Blood Pressure 125/52 128/73 140/75 O2 Sat by Pulse Oximetry 96 89 L 100 01/14/19 11:40 01/14/19 12:03 01/14/19 12:40 Temperature Pulse Rate 93 H 90 90 Respiratory Rate 18 19 19 Blood Pressure 131/74 O2 Sat by Pulse Oximetry 100 100 100 01/14/19 13:03 01/14/19 13:30 01/14/19 13:40 Temperature Pulse Rate 89 88 83 Respiratory Rate 19 17 17 Blood Pressure 104/72 O2 Sat by Pulse Oximetry 99 100 100 01/14/19 13:50 01/14/19 14:00 01/14/19 14:03 Temperature Pulse Rate 91 H 82 84 Respiratory Rate 19 18 17 Blood Pressure 133/63 O2 Sat by Pulse Oximetry 100 100 100 01/14/19 14:10 01/14/19 14:20 01/14/19 14:30 Temperature Pulse Rate 85 94 H 83 Respiratory Rate 19 19 22 Blood Pressure O2 Sat by Pulse Oximetry 100 84 L 100 01/14/19 14:40 Temperature Pulse Rate 85 Respiratory Rate 17 Blood Pressure O2 Sat by Pulse Oximetry 100 Laboratory Results - last 24 hr 01/14/19 01/14/19 01/14/19 10:10 10:10 10:10 WBC RBC Hgb Hct MCV MCH MCHC RDW Std Deviation Plt Count MPV Neut % (Auto) Lymph % (Auto) [place] % (Auto) Eos % (Auto) Baso % (Auto) Neut # (Auto) Lymph # (Auto) [place] # (Auto) Eos # (Auto) Baso # (Auto) PT INR PTT (Actin FS) Sodium 143 Potassium 4.8 Chloride 104 Carbon Dioxide 27 Anion Gap 12 BUN 25 H Creatinine 1.4 H Estimated GFR/1.73 m2 38 BUN/Creatinine Ratio 18 Glucose 236 H POC Glucose Calculated Osmolality 297 Calcium 9.2 Total Bilirubin 0.27 AST 8 L ALT 7 L Alkaline Phosphatase 70 Ammonia Troponin T < 0.010 Total Protein 6.4 Albumin 3.7 Globulin 2.7 Albumin/Globulin Ratio 1.4 Plasma Lactate 2.0 Urine Source Urine Color Urine Turbidity Urine pH Ur Specific [place] Urine Protein Ur Glucose (Stick) Ur Ketones (Stick) Urine Blood Urine Nitrite Urine Bilirubin Urobilinogen Dipstick Urine Leukocytes Urine WBC (Auto) Urine RBC (Auto) U Epithel Cells (Auto) Urine Bacteria (Auto) Urine Opiates Screen Ur Oxycodone Screen Ur Methadone, Qual Ur Barbiturates Screen Ur Phencyclidine Scrn Ur Amphetamines Screen U Benzodiazepines Scrn Urine Cocaine Screen U Cannabinoids Screen 01/14/19 01/14/19 01/14/19 10:10 10:10 10:17 WBC RBC Hgb Hct MCV MCH MCHC RDW Std Deviation Plt Count MPV Neut % (Auto) Lymph % (Auto) [place] % (Auto) Eos % (Auto) Baso % (Auto) Neut # (Auto) Lymph # (Auto) [place] # (Auto) Eos # (Auto) Baso # (Auto) PT 13.3 INR 0.94 PTT (Actin FS) 25.0 Sodium Potassium Chloride Carbon Dioxide Anion Gap BUN Creatinine Estimated GFR/1.73 m2 BUN/Creatinine Ratio Glucose POC Glucose 238 H Calculated Osmolality Calcium Total Bilirubin AST ALT Alkaline Phosphatase Ammonia 46 Troponin T Total Protein Albumin Globulin Albumin/Globulin Ratio Plasma Lactate Urine Source Urine Color Urine Turbidity Urine pH Ur Specific [place] Urine Protein Ur Glucose (Stick) Ur Ketones (Stick) Urine Blood Urine Nitrite Urine Bilirubin Urobilinogen Dipstick Urine Leukocytes Urine WBC (Auto) Urine RBC (Auto) U Epithel Cells (Auto) Urine Bacteria (Auto) Urine Opiates Screen Ur Oxycodone Screen Ur Methadone, Qual Ur Barbiturates Screen Ur Phencyclidine Scrn Ur Amphetamines Screen U Benzodiazepines Scrn Urine Cocaine Screen U Cannabinoids Screen 01/14/19 01/14/19 01/14/19 10:57 11:44 11:44 WBC 5.79 RBC 3.70 L Hgb 11.1 L Hct 34.5 L MCV 93.2 MCH 30.0 MCHC 32.2 L RDW Std Deviation 14.5 Plt Count 98 L MPV 9.9 Neut % (Auto) 81.7 H Lymph % (Auto) 4.3 L [place] % (Auto) 13.6 H Eos % (Auto) 0.2 Baso % (Auto) 0.2 Neut # (Auto) 4.73 Lymph # (Auto) 0.25 L [place] # (Auto) 0.79 H Eos # (Auto) 0.01 Baso # (Auto) 0.01 PT INR PTT (Actin FS) Sodium Potassium Chloride Carbon Dioxide Anion Gap BUN Creatinine Estimated GFR/1.73 m2 BUN/Creatinine Ratio Glucose POC Glucose Calculated Osmolality Calcium Total Bilirubin AST ALT Alkaline Phosphatase Ammonia Troponin T Total Protein Albumin Globulin Albumin/Globulin Ratio Plasma Lactate Urine Source CATH Urine Color YELLOW Urine Turbidity CLEAR Urine pH 7.5 Ur Specific [place] 1.007 Urine Protein NEGATIVE Ur Glucose (Stick) 150 A Ur Ketones (Stick) 10 A Urine Blood NEGATIVE Urine Nitrite NEGATIVE Urine Bilirubin NEGATIVE Urobilinogen Dipstick NORMAL Urine Leukocytes SMALL A Urine WBC (Auto) <10 Urine RBC (Auto) <10 U Epithel Cells (Auto) <10 Urine Bacteria (Auto) NEGATIVE Urine Opiates Screen NONE DETECTED Ur Oxycodone Screen NONE DETECTED Ur Methadone, Qual NONE DETECTED Ur Barbiturates Screen NONE DETECTED Ur Phencyclidine Scrn NONE DETECTED Ur Amphetamines Screen NONE DETECTED U Benzodiazepines Scrn NONE DETECTED Urine Cocaine Screen NONE DETECTED U Cannabinoids Screen NONE DETECTED Orders Category Date Time Status Finger Stick Blood Sugar (ED) DIRECTED Care 01/14/19 10:08 Active Nursing- Obtain EKG ONCE Care 01/14/19 10:[address] HEAD W/O CONTRAST [CT] Stat Exams 01/14/19 10:05 Completed cxr [CHEST-1 VIEW] [RAD] Stat Exams 01/14/19 10:04 Completed AMMONIA [CHEM] Stat Lab 01/14/19 10:10 Completed CBC WITH ELECTRONIC DIFF [HEME] Stat Lab 01/14/19 10:57 Completed COMPREHENSIVE METABOLIC PANEL [CHEM] Stat Lab 01/14/19 10:10 Completed LACTATE, PLASMA [CHEM] Stat Lab 01/14/19 10:10 Completed PROTIME WITH INR [COAG] Stat Lab 01/14/19 10:10 Completed PTT [COAG] Stat Lab 01/14/19 10:10 Completed TROPONIN T Stat Lab 01/14/19 10:10 Completed URINALYSIS [URINALYSIS] Stat Lab 01/14/19 11:44 Completed URINE DRUG SCREEN Stat Lab 01/14/19 11:44 Completed 0.9% Sodium Chloride Inj [Ns] 1,000 ml Med 01/14/19 12:59 Discontinued IV 999 mls/hr CefTRIAXONE [Rocephin] 1 gm Med 01/14/19 12:59 Discontinued 0.9% Sodium Chloride Inj [Ns] 50 ml IV NOW Oxygen Device Stat Oth 01/14/19 10:10 Completed EKG [EKG] Stat Ther 01/14/19 10:02 Draft Result Diagrams: 01/14/19 10:57 01/14/19 10:10 - EKG 1 Time of EKG reading by physician:: 10:04 EKG Read and Signed by:: Rafael Lenoe EKG Interpretation (*Must complete 3 of following elements*): Normal Rate: 84 Rhythm: NSR [place]: normal QRS: normal [place] Interval: normal ST Wave: normal - XRAY 1 XRAY: Bilateral XRAY Study: Chest (EXAM: CHEST-1 VIEW HISTORY: ams TECHNIQUE: Chest single view COMPARISON: 11/09/2018 FINDINGS: For inspiratory effort. The heart is not enlarged. The vessels are not distended. There are no infiltrates. No effusion identified. IMPRESSION: Negative exam. Electronically signed by Albert Avalos 01/14/2019 11:07 AM 01/14/19 1107 Interpreting Physician: Albert Avalos MD Dictated Date/Time: 01/14/19 1103 cc: Rafael Leone MD; Saeed Kearns MD) Impression: See EMR Report - CT/MRI 1 CT Study: Head (EXAM: CT HEAD W/O CONTRAST HISTORY: ams TECHNIQUE: CT head without contrast COMPARISON: 11/09/2018 FINDINGS: No parenchymal hemorrhage. No epidural or subdural hematoma. No subarachnoid hemorrhage. Mild atrophy. No mass identified on this noncontrasted exam. No hydrocephalus. No sinus opacification. IMPRESSION: No hemorrhage. Mild atrophy. This exam was performed using automated exposure control, adjustment of mA or kV according to patient size, and/or use of iterative reconstruction technique. Electronically signed by Albert Avalos 01/14/2019 11:11 AM 01/14/19 1111 Interpreting Physician: Albert Avalos MD Dictated Date/Time: 01/14/19 1110 cc: Rafael Leone MD; Saeed Kearns MD) Impression: See EMR Report - CONSULTS/PCP/HOSPITALIST Notification #1 *Consult/PCP/Hospitalist*: Dr. Kearns (Hospitalist) Time Discussed: 15:19 Consult Disposition: Admit Departure - Departure Date of Disposition Decision: 01/14/19 Time of Disposition Decision: 15:19 DIAGNOSIS: UTI (urinary tract infection), Altered mental status, Renal insufficiency Disposition: ADMITTED INPATIENT 09 Certified Medical Emergency: Emergent Condition: Fair Referrals and Follow-Ups: Saeed Kearns MD [Primary Care Provider] - - Critical Care Note This patient required my direct & personal management of CC.: Yes Attestation - Physician/ MATY Attestation Patient care was provided by Advanced Practice Provider:: No The physician spent face to face time with patient:: Yes Advanced Practice Provider documentation review:: Supervising physician onsite and consulted in the evaluation and care of this patient. The physician did have a face to face encounter with the patient. This chart was documented by the indicated scribe, (Jasvir Villegas, Charlie) and accurately reflects the services I performed and decisions made by me, Rafael Leone MD, as attested by the provider's signature.
[2019-01-14] MEDS: ROCEPHIN 1 GM in NS 50 ML IV SCH (16:04)
[2019-01-14] MEDS: ZOSYN 3.375 GM in NS 50 ML IV SCH (20:55)
[2019-01-14] MEDS ORDERED: SODIUM CHLORIDE 0.9% INJ SCH (22:00)
[2019-01-14] MEDS: LOVENOX SUBQ SCH (22:00)
[2019-01-14] MEDS: PEPCID IV SCH (22:05)
--- NOTE | 2019-01-14 22:05 | HISTORY AND PHYSICAL ---
CHIEF COMPLAINT: Altered mental status. HISTORY OF PRESENT ILLNESS: She is a 63-year-old white female who came to the emergency room, reported altered mental status, nausea. The patient has underlying bipolar, dementia and UTI. Upon workup, the patient was found to have UTI and dehydration. Basically with IV antibiotics, IV fluids. The patient was seen in the emergency room, waiting to be admitted. The patient had a similar presentation before, and as a result a hospital admission was warranted. I did review the workup in the emergency room. PAST MEDICAL HISTORY: Allergic rhinitis due to pollen, bipolar disorder, Lewy body dementia, type 2 diabetes, acid reflux disease, homocystinemia, hyperlipidemia, hypertension, chronic back pain, B12 deficiency, sleep apnea, venous thrombosis of left leg. PAST SURGICAL HISTORY: Complete hysterectomy, tubal ligation, hammertoe surgery on the left side, back surgery, right rotator cuff repair on the left side. MEDICATIONS: Aricept 10 mg daily; buspirone; Wellbutrin 200 mg b.i.d.; Depakote 500 once daily; Flonase as needed 1 spray in each nostril once a day; folic acid 1 mg daily; vitamin B12, 1000 mcg daily; lisinopril 2.5 daily; metformin 500 twice daily; Mirapex 0.5 mg daily; Protonix 40 daily; Sinemet 25/100 one tablet p.o. b.i.d.; Tradjenta 5 mg daily; vitamin D 50,000 units once a week. ALLERGIES: Not known. SOCIAL HISTORY: She is single. No children. Sister is helping. No smoking. No alcohol. FAMILY HISTORY: Father at the age of 65. Mother is doing fine. REVIEW OF SYSTEMS: The patient is totally confused. Upon questioning, she denies any headache. No chest pain or shortness of breath. No GI symptoms, dysuria, hesitancy or frequency. No swelling of legs. No joint pain. Neurologic: No focal symptoms or weakness. PHYSICAL EXAMINATION: VITAL SIGNS: On exam, temperature is 98.6 degrees, pulse is 77, blood pressure is 111/61. HEENT: Atraumatic, normocephalic. Pupils equal and reactive to light. TMs are normal. Nose and throat within normal limits. NECK: Supple. No lymphadenopathy. No goiter. CHEST: Bilateral air entry. HEART: Sounds are regular. No murmur. ABDOMEN: Belly is soft, obese, nontender. Good bowel sounds. No peripheral edema or cyanosis. No obvious neurological deficits. LABORATORY DATA: CBC: White cell count 5.7, hematocrit 34.5, platelets 98,000. PT/INR is normal. SMA 7: Sodium 143, potassium 4.8, BUN 25, creatinine 1.4, glucose 236. Liver function tests were normal. Urinalysis is clear. Urine dipstick is negative. Microbiology is pending. DIAGNOSTIC DATA: CT head: No hemorrhage; mild atrophy. Chest x-ray negative. EKG: Normal sinus, nothing acute. ASSESSMENT AND PLAN: 1. A 63-year-old white female admitted to the hospital with altered mental status due to metabolic encephalopathy with underlying bipolar, Lewy body dementia, possible urinary tract infection. The patient has known history of urinary tract infection. Continue on intravenous Zosyn. 2. Intravenous fluids. 3. History of prior deep venous thrombosis. Needs Lovenox. 4. Also Pepcid for gastrointestinal prophylaxis. 5. Slowly reconcile home medications. Waiting to be admitted in the hospital. Will follow up on the clinical course. cc: Evert Kearns MD
[2019-01-15] MEDS: ZOSYN 3.375 GM in NS 50 ML IV SCH ×4 (01:32→18:46)
[2019-01-15] MEDS: HUMULIN R SUBQ SCH ×3 (07:07→16:00)
[2019-01-15] MEDS: TYLENOL PO PRN ×3 (08:32→20:35)
[2019-01-15] MEDS: WELLBUTRIN SR PO SCH ×2 (09:03→20:35)
[2019-01-15] MEDS: CULTURELLE PO SCH (09:04)
[2019-01-15] MEDS: SINEMET 25/100 PO SCH ×2 (09:04→20:34)
[2019-01-15] MEDS: DEPAKOTE PO SCH (09:04)
[2019-01-15] MEDS: PEPCID IV SCH ×3 (09:18→23:15)
[2019-01-15] MEDS: ROCEPHIN 1 GM in NS 50 ML IV SCH (16:21)
[2019-01-15] MEDS: LOVENOX SUBQ SCH ×2 (20:35→23:13)
[2019-01-15] MEDS ORDERED: TRADJENTA PO SCH (21:00)
[2019-01-15] MEDS ORDERED: ARICEPT PO SCH (21:00)
--- NOTE | 2019-01-15 21:32 | PROGRESS NOTE ---
DATE: 01/15/2019 SUBJECTIVE: The patient's mental status is improving. Some muscle cramps and pain. EXAM: VITAL SIGNS: Temperature is 97, pulse is 70, blood pressure is 114 x 42. HEENT: Within normal limits. Neck: Supple. No lymphadenopathy. Chest: Bilateral air entry. Heart: Sounds are regular. Abdomen: Belly is soft, obese, nontender. Good bowel sounds. LABS: Urine cultures are pending. ASSESSMENT AND PLAN: 1. Altered mental status due to metabolic encephalopathy, urinary tract infection. Continue on IV Zosyn. 2. Deep venous thrombosis prophylaxis with Lovenox. 3. Type 2 diabetes on Tradjenta and sliding scale. 4. Dementia on Aricept. 5. Bipolar depression on Depakote and Wellbutrin. 6. Vitamin D deficiency on replacement therapy and continue present treatment and Graves ambulation. We will follow up. LEVEL OF DOCUMENTATION: 25 minutes. cc: Evert Kearns MD
[2019-01-16] MEDS: ZOSYN 3.375 GM in NS 50 ML IV SCH ×2 (00:54→08:33)
[2019-01-16] MEDS: HUMULIN R SUBQ SCH ×2 (00:54→08:52)
[2019-01-16 08:16] VITALS: BP 128/59
[2019-01-16] MEDS: WELLBUTRIN SR PO SCH (08:33)
[2019-01-16] MEDS: DEPAKOTE PO SCH (08:34)
[2019-01-16] MEDS: SINEMET 25/100 PO SCH (08:34)
[2019-01-16] MEDS: CULTURELLE PO SCH (08:34)
[2019-01-16] MEDS: PEPCID IV SCH (10:39)
--- NOTE | 2019-01-18 02:23 | DISCHARGE SUMMARY ---
ADMISSION DATE: 01/14/2019 DISCHARGE DATE: 01/16/2019 DISCHARGING DIAGNOSIS: Altered mental status due to urinary tract infection. SECONDARY DIAGNOSES: 1. Allergic rhinitis due to pollen. 2. Bipolar disorder. 3. Lewy body dementia. 4. Type 2 diabetes. 5. Acid reflux disease. 6. Homocystinemia. 7. Hyperlipidemia. 8. Hypertension. 9. Chronic back pain. 10. B12 deficiency. 11. Sleep apnea. 12. History of DVT in the left leg. BRIEF HISTORY: Please see the H and P that was done on 01/14/2019. In brief, she is a 63-year- old white female with above problems, was admitted, not able to ambulate, UTI symptoms, confusion. The patient was given IV fluids, IV antibiotics. After that, her symptoms were much improved. She wants to go home with outpatient home health care. LABS: White cell count 5.7, hematocrit 34.5, and platelet count 98,000. PT 13, INR 0.9. Sodium 143, potassium 4.8, chloride 104, BUN 25, creatinine 1.4. Glucose 238. Liver function was normal. Urinalysis clear. Urine cultures in the past was E coli. DISCHARGE INSTRUCTIONS: 1. Outpatient home health. 2. Tradjenta 5 mg daily, Aricept 5 mg daily, Protonix 40 daily, carbidopa-levodopa 1 tablet p.o. b.i.d., simvastatin 20 daily, vitamin D 50,000 units once a week, Wellbutrin 200 p.o. b.i.d., Culturelle 1 tablet daily, Depakote 500 daily, Macrobid 100 p.o. b.i.d. 3. Follow up in my office in 10 days. cc: Evert Kearns MD
[2019-01-19] MEDS ORDERED: VITAMIN D PO SCH (09:00)
== END 2019-01-16 10:48 | disposition home health service (06) | DRG 640 ==
LOC: SUPCPDRO → ED 08:28 → EDIPHOLD 15:56 → 4N 22:26
PROVIDERS: ADMIT Internal Medicine; ATTEND Internal Medicine
CPT/HCPCS: 51701; 70450; 71010; 71045; 80053; 80101; 80301; 80307; 80324; 80345; 80346; 80353; 80358; 80361; 80365; 81001; 82140; 82948; 83605; 83992; 84484; 85025; 85610; 85730; 93005; 96361; 96365; 96366; 96372; 96375; 99285; A9270; G0431; G0434; G0479; G0480; J0696; J1650; J2543; J7030; P9612; S0028; XXXXX

== ENCOUNTER 2019-04-18 14:26 | Inpatient (IN) ==
[2019-04-18] MEDS ORDERED: SODIUM CHLORIDE 0.9% INJ SCH (15:30)
[2019-04-18] MEDS ORDERED: NEXIUM IV SCH (15:30)
[2019-04-18 16:06] LABS: BASO# 0.02 X1000 (0.0-0.2); BASO% 0.4 % (0.0-0.8); EOS# 0.06 X1000 (0.0-0.7); EOS% 1.1 % (0.0-10.0); HEMOGLOBIN 10.8 g/dL (12.0-16.0); IMM GRAN# 0.02 X1000 (0.0-0.04); IMM GRAN% 0.4 % (0.0-0.5); LYMPH# 1.51 X1000 (1.2-3.4); LYMPH% 28.5 % (20.5-51.1); MCH 29.1 PG (27-31); MCHC 32.7 g/dL (33-37); MCV 88.9 FL (81-99); MONO# 0.36 X1000 (0.11-0.59); MONO% 6.8 % (1.7-9.3); MPV 10.9 FL (7.4-10.4); NEUT# 3.32 X1000 (1.4-6.5); NEUT% 62.8 % (42.2-75.2); PLT 187 X1000 (130-400); RBC 3.71 XMIL (4.2-5.4); RDW 14.6 % (11.5-14.5); WBC 5.29 X1000 (4.8-10.8)
[2019-04-18 16:27] LABS: CALCIUM 9.5 mg/dL (8.8-10.2); CREATININE 1.4 mg/dL (0.5-0.9); HEMOGLOBIN A1C 10.1 % (4.8-6.0); MAGNESIUM 1.8 mg/dL (1.5-2.7); POTASSIUM 4.5 mmol/L (3.5-5.1)
--- NOTE | 2019-04-18 16:43 | HISTORY AND PHYSICAL ---
CHIEF COMPLAINT: Uncontrolled sugar, hyperglycemia more than 600. HISTORY OF PRESENT ILLNESS: She is a 63-year-old white female basically admitted directly from our clinic with uncontrolled diabetes, blood sugar 600. The Home Health called me twice and apparently she is eating sweets and somehow she stopped taking metformin. I will find the details. Basically admitted to the hospital for hyperglycemic dehydration. PAST MEDICAL HISTORY: 1. Allergic rhinitis due to pollen. 2. Bipolar disorder. 3. Lewy body dementia. 4. Type 2 diabetes. 5. Acid reflux disease. 6. Homocystinemia. 7. Hyperlipidemia. 8. Hypertension. 9. Chronic back pain. 10. B12 deficiency. 11. Sleep apnea. 12. Chronic history of DVT in the left leg. PAST SURGICAL HISTORY: Complete hysterectomy, tubal ligation, hammertoe surgery on the left side, back surgery, and right rotator cuff repair on the left side. MEDICINES: Aricept 10 mg daily, Wellbutrin 200 p.o. b.i.d., Depakote 500 daily, Flonase as needed, folic acid 1 mg daily, vitamin B12 at 1000 mcg daily, lisinopril 2.5 mg daily, metformin 500 twice daily; Mirapex 0.5 daily, Protonix 40 daily, Sinemet 25/100 one tablet p.o. b.i.d., Trajenta 5 mg daily, and vitamin D 50,000 once a week. ALLERGIES: Not known. SOCIAL HISTORY: She is single. No children. Sisters are helping. No smoking. No alcohol. FAMILY HISTORY: Father at the age of 65. Mother is doing fine. REVIEW OF SYSTEMS: constitutional: The patient is confused with polyuria, polydipsia, and vision problem. Cardiopulmonary: No chest pain, shortness of breath, PND, orthopnea. Gastrointestinal: No nausea, no vomiting, no abdominal pain, no bleeding per rectum. GENITOURINARY: History of polyuria. No dysuria, no hematuria, no swelling of legs, no joint pain. Neurologic: No focal symptoms or weakness. PHYSICAL EXAMINATION: VITAL SIGNS: Temperature is 98.7 degrees. Hemodynamics were stable. HEENT: Atraumatic, normocephalic. Pupils equal and reacting to light. TMs are normal. Nose and throat within normal limits. NECK: Supple. No lymphadenopathy. No goiter. CHEST: Bilateral air entry. HEART: Sounds are regular. No murmur. ABDOMEN: Belly is soft, nontender. Good bowel sounds. No masses palpable. EXTREMITIES: No peripheral edema or cyanosis. NEUROLOGIC: No neurological deficits. INVESTIGATIONS: Blood sugars more than 600, not able to be recorded. LABORATORIES: Pending. ASSESSMENT AND PLAN: A 63-year-old white female admitted to the hospital with hyperglycemic dehydration and noncompliant. 1. Discontinue metformin. Currently only on Trajenta. We will check the A1c. Follow up on the labs. 2. IV fluids. 3. Sliding scale with insulin coverage. 4. Replace metformin with B12 and folic acid. 5. Deep venous thrombosis prophylaxis with Lovenox. Gastrointestinal prophylaxis with IV PPI. 6. Reconcile home medications, and we will follow up on the pending labs. cc: Evert Kearns MD
[2019-04-18] MEDS: NS 1,000 ML IV SCH (16:44)
[2019-04-18] MEDS: PROTONIX IV SCH (16:44)
[2019-04-18] MEDS: LOVENOX SUBQ SCH (16:44)
[2019-04-18] MEDS: SODIUM CHLORIDE 0.9% INJ SCH (16:44)
[2019-04-18] MEDS: HUMALOG SUBQ SCH ×2 (16:45→21:58)
[2019-04-18] MEDS: GLUCOPHAGE PO SCH (16:46)
[2019-04-18] MEDS: ARICEPT PO SCH (20:03)
[2019-04-18] MEDS: ZOCOR PO SCH (20:03)
[2019-04-18] MEDS: SINEMET 25/100 PO SCH (20:03)
[2019-04-18] MEDS: TRADJENTA PO SCH (20:03)
[2019-04-18] MEDS: TYLENOL PO PRN (20:04)
[2019-04-18] MEDS: WELLBUTRIN SR PO SCH (20:04)
[2019-04-19] MEDS: NS 1,000 ML IV SCH ×3 (03:33→20:31)
[2019-04-19] MEDS: TYLENOL PO PRN ×2 (03:41→20:23)
[2019-04-19] MEDS: HUMALOG SUBQ SCH ×4 (06:05→20:32)
[2019-04-19 07:40] LABS: CALCIUM 9.3 mg/dL (8.8-10.2); CREATININE 1.2 mg/dL (0.5-0.9); POTASSIUM 4.9 mmol/L (3.5-5.1)
[2019-04-19] MEDS: VITAMIN D PO SCH (08:32)
[2019-04-19] MEDS: WELLBUTRIN SR PO SCH ×2 (08:32→20:23)
[2019-04-19] MEDS: SINEMET 25/100 PO SCH ×2 (08:33→20:23)
[2019-04-19] MEDS: DEPAKOTE PO SCH (08:33)
[2019-04-19] MEDS: GLUCOPHAGE PO SCH ×2 (08:33→16:26)
[2019-04-19] MEDS: CULTURELLE PO SCH (08:33)
[2019-04-19] MEDS: METANX PO SCH (11:28)
--- NOTE | 2019-04-19 11:46 | PROGRESS NOTE ---
DATE: 04/19/2019 SUBJECTIVE: Blood sugar is coming down. The patient is a little bit confused, weak. REVIEW OF SYSTEMS: None reported. PHYSICAL EXAMINATION: Vital signs: Temperature is 97.8 degrees, pulse 67, blood pressure 121/65. HEENT: Within normal limits. Neck: Supple. No lymphadenopathy. Chest: Bilateral air entry. Heart: Sounds are regular. Abdomen: Belly is soft, nontender. Neurologic: No obvious deficits. INVESTIGATIONS: Sodium 134, potassium 4.9, BUN is 21, creatinine 1.2, glucose 166. A1c is 10.1. ASSESSMENT AND PLAN: 1. Uncontrolled diabetes due to discontinued metformin. I did review my office notes. She has been on metformin 500 p.o. b.i.d. along with the B12 tablets. Apparently, she has stopped taking. Last A1c was 6.0. The patient was reassured to continue on metformin and Tradjenta. 2. Hyponatremia. Azotemia improving. Continue IV fluids. Once it has come back normal, we will discontinue fluids tomorrow, and she can go home. LEVEL OF DOCUMENTATION: 25 minutes. cc: Evert Kearns MD
[2019-04-19] MEDS: LOVENOX SUBQ SCH (16:26)
[2019-04-19] MEDS: PROTONIX IV SCH (16:26)
[2019-04-19] MEDS: SODIUM CHLORIDE 0.9% INJ SCH (16:26)
[2019-04-19] MEDS: ARICEPT PO SCH (20:23)
[2019-04-19] MEDS: TRADJENTA PO SCH (20:23)
[2019-04-19] MEDS: ZOFRAN IV PRN (20:23)
[2019-04-19] MEDS: ZOCOR PO SCH (20:23)
[2019-04-20] MEDS: NS 1,000 ML IV SCH ×2 (04:10→13:26)
[2019-04-20] MEDS: TYLENOL PO PRN (06:14)
[2019-04-20] MEDS: HUMALOG SUBQ SCH ×4 (06:16→22:51)
[2019-04-20 07:21] LABS: CALCIUM 9.1 mg/dL (8.8-10.2); CREATININE 1.4 mg/dL (0.5-0.9); POTASSIUM 4.8 mmol/L (3.5-5.1)
[2019-04-20] MEDS: WELLBUTRIN SR PO SCH ×2 (08:28→22:50)
[2019-04-20] MEDS: GLUCOPHAGE PO SCH ×2 (08:28→18:00)
[2019-04-20] MEDS: VITAMIN D PO SCH (08:28)
[2019-04-20] MEDS: SINEMET 25/100 PO SCH ×2 (08:28→22:50)
[2019-04-20] MEDS: DEPAKOTE PO SCH (08:28)
[2019-04-20] MEDS: CULTURELLE PO SCH (08:28)
[2019-04-20] MEDS ORDERED: VITAMIN D PO SCH (09:00)
--- NOTE | 2019-04-20 11:52 | PROGRESS NOTE ---
DATE: 04/20/2019 SUBJECTIVE: The patient is feeble, tremulous, noncompliant, not eating the right food. OBJECTIVE: Vital Signs: Temp is 97. Vitals are stable. HEENT: Within normal limits. Neck: Supple. Chest: Clear. Heart: Heart sounds are regular. Abdomen: Belly is soft, nontender. Neurologic: No obvious deficits. INVESTIGATIONS: SMA-7: Creatinine is 1.4. Sugar is 251. ASSESSMENT AND PLAN: 1. Uncontrolled diabetes due to noncompliance. Used to control with diet, and stopped taking metformin. 2. Creatinine is 1.4. Continue on metformin and Tradjenta. 3. Lewy body dementia, stable. Continue intravenous fluids. Will also get Dietary consult for diabetic compliance. Will discuss with the family and will follow up. Continue present treatment. LEVEL OF DOCUMENTATION: 25 minutes. cc: Evert Kearns MD
[2019-04-20] MEDS: METANX PO SCH (13:26)
[2019-04-20] MEDS: LOVENOX SUBQ SCH (18:00)
[2019-04-20] MEDS: PROTONIX PO SCH (18:02)
[2019-04-20] MEDS: ARICEPT PO SCH (22:50)
[2019-04-20] MEDS: TRADJENTA PO SCH (22:50)
[2019-04-20] MEDS: ZOCOR PO SCH (22:50)
[2019-04-21] MEDS: NS 1,000 ML IV SCH ×4 (02:17→20:55)
[2019-04-21] MEDS: TYLENOL PO PRN ×2 (04:39→17:20)
[2019-04-21] MEDS: HUMALOG SUBQ SCH ×4 (06:20→20:54)
[2019-04-21 06:42] LABS: CALCIUM 9.3 mg/dL (8.8-10.2); CREATININE 1.4 mg/dL (0.5-0.9); POTASSIUM 5.3 mmol/L (3.5-5.1)
[2019-04-21] MEDS: VITAMIN D PO SCH (08:19)
[2019-04-21] MEDS: WELLBUTRIN SR PO SCH ×2 (08:19→20:53)
[2019-04-21] MEDS: DEPAKOTE PO SCH (08:20)
[2019-04-21] MEDS: GLUCOPHAGE PO SCH ×2 (08:20→16:11)
[2019-04-21] MEDS: CULTURELLE PO SCH (08:20)
[2019-04-21] MEDS: SINEMET 25/100 PO SCH ×2 (08:20→20:54)
[2019-04-21] MEDS: ZOFRAN IV PRN (09:22)
[2019-04-21] MEDS: METANX PO SCH (09:50)
[2019-04-21] MEDS: LOVENOX SUBQ SCH (16:10)
[2019-04-21] MEDS: PROTONIX PO SCH (16:11)
[2019-04-21] MEDS: TRADJENTA PO SCH (20:54)
[2019-04-21] MEDS: ZOCOR PO SCH (20:54)
[2019-04-21] MEDS: ARICEPT PO SCH (20:54)
--- NOTE | 2019-04-21 21:23 | PROGRESS NOTE ---
DATE: 04/21/2019 SUBJECTIVE: The patient is a little bit shaking, blood sugars are coming down. Clinical Unit Educator initiated. The patient wants to go for outpatient with home health care. REVIEW OF SYSTEMS: None reported. PHYSICAL EXAM: Temperature is 98.9 degrees, pulse 76. Vitals are stable.HEENT: Within normal limits. Neck: Supple. No lymphadenopathy. Chest: Bilateral air entry. Heart: Sounds are regular. Belly: Soft, nontender, good bowel sounds. INVESTIGATIONS: Sodium 140, potassium 5.3, chloride 105, BUN 16, creatinine 1.4, glucose 148. ASSESSMENT AND PLAN: Uncontrolled diabetes getting better. Continue on metformin and Tradjenta. Creatinine 1.4. Continue to monitor and also need outpatient diabetic teaching classes. If she stable next 24 hours will discharge home with outpatient home health care. LEVEL OF DOCUMENTATION: 25 minutes. cc: Evert Kearns MD
[2019-04-22] MEDS: NS 1,000 ML IV SCH ×2 (02:42→16:25)
[2019-04-22] MEDS: TYLENOL PO PRN ×2 (02:51→08:40)
[2019-04-22] MEDS: HUMALOG SUBQ SCH ×3 (06:46→16:25)
[2019-04-22] MEDS: GLUCOPHAGE PO SCH ×2 (08:39→16:24)
[2019-04-22] MEDS: METANX PO SCH (08:39)
[2019-04-22] MEDS: WELLBUTRIN SR PO SCH ×2 (08:40→20:13)
[2019-04-22] MEDS: VITAMIN D PO SCH (08:40)
[2019-04-22] MEDS: SINEMET 25/100 PO SCH ×2 (08:41→20:13)
[2019-04-22] MEDS: CULTURELLE PO SCH (08:41)
[2019-04-22] MEDS: DEPAKOTE PO SCH (08:41)
--- NOTE | 2019-04-22 12:19 | Diag Imaging Result Doc PS360 ---
EXAM: CHEST-PORTABLE 04/22/2019 HISTORY: rehab pleacement TECHNIQUE: AP portable upright at 1208 COMMENT: There is no evidence of acute cardiac or pulmonary disease. Compared to 01/14/2019 there has been no significant change in the appearance the chest. IMPRESSION: Stable chest. Electronically signed by Graeme Fleming 04/22/2019 12:17 PM
[2019-04-22] MEDS: LOVENOX SUBQ SCH (16:24)
[2019-04-22] MEDS: PROTONIX PO SCH (16:24)
[2019-04-22] MEDS: TRADJENTA PO SCH (20:13)
[2019-04-22] MEDS: ZOCOR PO SCH (20:13)
[2019-04-22] MEDS: ARICEPT PO SCH (20:13)
--- NOTE | 2019-04-22 22:33 | PROGRESS NOTE ---
DATE: 04/22/2019 SUBJECTIVE: The patient is weak. Blood sugars doing well. She wants to go for rehab. She does not want to go for this deconditioning. PHYSICAL EXAMINATION: Vital Signs: Stable. HEENT: Within normal limits. Neck: Supple. Chest: Clear. Heart: Sounds are regular. Abdomen: Belly is soft, nontender. LABS: Blood sugars 179. ASSESSMENT AND PLAN: Uncontrolled diabetes, doing well. Continue on metformin and Tradjenta. Creatinine 1.4. Will discontinue IV fluids. The patient is medically stable to go home with outpatient [facility]. Apparently, family insisting to go for rehab. Dray Driver consult. Paperwork is underway and will follow up. LEVEL OF DOCUMENTATION: 25 minutes. cc: Evert Kearns MD
[2019-04-23] MEDS: HUMALOG SUBQ SCH ×5 (00:14→20:47)
[2019-04-23] MEDS: METANX PO SCH (08:46)
[2019-04-23] MEDS: GLUCOPHAGE PO SCH ×2 (08:46→16:03)
[2019-04-23] MEDS: DEPAKOTE PO SCH (08:46)
[2019-04-23] MEDS: VITAMIN D PO SCH (08:47)
[2019-04-23] MEDS: CULTURELLE PO SCH (08:47)
[2019-04-23] MEDS: SINEMET 25/100 PO SCH ×2 (08:47→20:46)
[2019-04-23] MEDS: WELLBUTRIN SR PO SCH ×2 (08:47→20:46)
[2019-04-23] MEDS: LOVENOX SUBQ SCH (16:03)
[2019-04-23] MEDS: PROTONIX PO SCH (16:03)
[2019-04-23] MEDS: TRADJENTA PO SCH (20:46)
[2019-04-23] MEDS: ZOCOR PO SCH (20:46)
[2019-04-23] MEDS: ARICEPT PO SCH (20:46)
[2019-04-24] MEDS: TYLENOL PO PRN (02:28)
[2019-04-24] MEDS: HUMALOG SUBQ SCH ×2 (07:14→11:20)
--- NOTE | 2019-04-24 10:21 | DISCHARGE SUMMARY ---
ADMISSION DATE: 04/18/2019 DISCHARGE DATE: 04/24/2019 DISCHARGING DIAGNOSIS: Uncontrolled diabetes due to noncompliance with dehydration. SECONDARY DIAGNOSIS: 1. Bipolar disorder. 2. Lewy body dementia. 3. Type 2 diabetes. 4. Acid reflux disease. 5. Homocystinemia. 6. Hyperlipidemia. 7. Hypertension. Chronic back pain. 8. B12 deficiency. 9. Sleep apnea. 10. History of deep venous thrombosis in the left leg. 11. Recurrent urinary tract infections. 12. Allergic rhinitis due to pollen. BRIEF HISTORY: Please see the H and P that was done on 04/18/2019. In brief, she is a 63-year- old white female, somehow stopped taking metformin. Sugar was well controlled in December off this year in my office. The A1c 6.1. She was taking metformin and Tradjenta. Somehow she stopped taking metformin, eating nondiabetic diet with sweets. The patient has been on the home health care. Blood sugars were running close to 500-600, and not able to record fingersticks. She was admitted to the hospital for dehydration, azotemia, uncontrolled diabetes. HOSPITAL COURSE: 1. She was given IV fluids, follow up hydration. Creatinine came back to 1.1. 2. Patient was started on metformin along with B12 and folic acid. With underlying dementia and bipolar disorder patient is slowly weak. At the request of the family he she has been transferred to the rehab place. LABS: At the time of discharge as follows CBC: White cell count 5.2, hematocrit 33, platelets 187,000. Sodium 140, potassium 4.8, chloride 104, BUN 17, creatinine 1.4. A1c 10.1. DISCHARGE INSTRUCTIONS ARE FOLLOWS: 1. Tradjenta 5 mg at bedtime. 2. Aricept 5 mg at bedtime. 3. Protonix 40 daily. 4. Carbidopa/levodopa 25/100 one tablet p.o. b.i.d. 5. Simvastatin 20 mg daily. 6. Vitamin D 50,000 units once a week. 7. Bupropion 200 p.o. b.i.d.. 8. Culturelle 1 tablet daily. 9. Depakote 500 p.o. t.i.d. 10. Cyanocobalamin with folic acid 1 tablet daily/ 11. Metformin 850 p.o. b.i.d. 12. Continue to monitor blood sugars and check the SMA 7, A1c in 3 months. 13. Follow-up in my office in 2 weeks. cc: Evert Kearns MD
[2019-04-24] MEDS: GLUCOPHAGE PO SCH (10:30)
[2019-04-24] MEDS: DEPAKOTE PO SCH (10:31)
[2019-04-24] MEDS: CULTURELLE PO SCH (10:31)
[2019-04-24] MEDS: WELLBUTRIN SR PO SCH (10:31)
[2019-04-24] MEDS: METANX PO SCH (10:31)
[2019-04-24] MEDS: SINEMET 25/100 PO SCH (10:31)
[2019-04-24] MEDS: VITAMIN D PO SCH (10:31)
[2019-04-24 12:10] VITALS: BP 123/84
== END 2019-04-24 15:26 | DRG 638 ==
LOC: DIRADM 14:26 → 3N 14:44
PROVIDERS: ADMIT Internal Medicine; ATTEND Internal Medicine